=== PATIENT | female | born 2000 | race Caucasian/White ===

== ENCOUNTER → 2021-10-01 | Outpatient (CLI) | payer BC ==
--- NOTE | 2021-10-01 21:01 | US ---
EXAMINATION TYPE: Transabdominal DATE OF EXAM: 10/01/2021 8:49 AM COMPARISON: NONE CLINICAL HISTORY: Z36.87 UNCERTAIN LMP. Confirm dates EXAM PERFORMED: Transabdominal (TA) EXAM MEASUREMENTS: GESTATIONAL AGE / DATING Physician Established: (8 weeks/0 days) EDC: 05/13/2022 Dates by LMP: (8 weeks/0 days) EDC: 05/13/2022 Dates by First Scan: No previous this is first scan Dates by Current Scan for: ( 8 weeks/1 days) EDC: 05/12/2022 MATERNAL ANATOMY Uterus: 9.0 x 5.9 x 6.8cm Right Ovary: 2.8 x 1.8 x 1.3cm Left Ovary: 2.3 x 1.3 x 3.1cm Post CDS / Adnexa: wnl Presence of free fluid: no Presence of corpus luteal cyst: not seen Presence of subchorionic bleed: no GESTATION / SURVEY CRL: 1.7cm (8 weeks/1 days) Yolk Sac (normal less than 6mm): 4.1mm Heart Rate: 163 bpm Rhythm: Normal IUP: Viable IUP Date of LMP: 08/06/2021 Beta HcG (if available): Not available at time of exam IMPRESSION: 1. Single intrauterine gestation estimated at 8 weeks 1 days gestation based on the crown-rump length . Cardiac activity measures 163 bpm was observed during the study.
== END | disposition home or self-care (01) ==
LOC: RADUSWWP 08:18
PROVIDERS: ATTEND Obstetrics & Gynecology
DX: Z36.87 Encounter for antenatal screening for uncertain dates (principal); Z3A.08 8 weeks gestation of pregnancy
CPT/HCPCS: 76801

== ENCOUNTER 2022-03-06 17:41 | Outpatient (CLI) | payer BC ==
[2022-03-06 18:27] LABS: Appearance,Urine Cloudy (Clear); Bacteria,Urine Few /hpf; Bilirubin,Urine Negative (Negative); Blood,Urine Negative (Negative); Budding Yeast,Urine Moderate /hpf; Color,Urine Yellow; Glucose,Urine (UA) Negative (Negative); Ketones,Urine Negative (Negative); Leukocyte Esterase,Urine Negative (Negative); Mucus,Urine Rare /hpf; Nitrite,Urine Negative (Negative); PH, Urine 6.5 (5.0-8.0); Protein,Urine Trace (Negative); RBC,Urine 1 /hpf (0-5); Specific Gravity,Urine 1.018 (1.001-1.035); Squamous Epithelial Cell,Urine 2 /hpf (0-4); Urobilinogen,Urine <2.0 mg/dL (<2.0); WBC,Urine 9 /hpf (0-5)
[2022-03-06] MEDS: LACTATED RINGERS 1,000 ML IV SCH ×3 (18:36→21:15)
[2022-03-06 21:14] VITALS: BP 134/79; PULSE 98; RESP 16; TEMP 97.4
--- NOTE | 2022-03-17 09:44 | P.MSEPDOC ---
Presenting Problems - Arrival Data Date of Arrival on Unit: 03/06/22 Time of Arrival on Unit: 17:41 Mode of Transport: Ambulatory - Complaint OB-Reason for Admission/Chief Complaint: Pain Comment: back pain and vomitting (yesterday) Medical History - Information : 1 Para: 0 Term: 0 : 0 Abortions: Spontaneous or Elective: 0 Number of Living Children: 0 - Gestational Age Gestational Age by GIOVANY (wks/days): 30 Weeks and 2 Days Review of Systems - Review of Systems Constitutional: No problems Breast: No problems ENT: No problems Cardiovascular: No problems Respiratory: No problems Gastrointestinal: No problems Genitourinary: No problems Musculoskeletal: No problems Neurological: No problems Skin: No problems Vital Signs - Temperature Temperature: 97.4 F Temperature Source: Temporal Artery Scan - Pulse Pulse Oximetery Pulse Rate: 98 Pulse Assessment Method: Pulse Oximetry - Respirations Respiratory Rate: 16 O2 Sat by Pulse Oximetry: 98 - Blood Pressure Right Arm Blood Pressure: 134/79 Blood Pressure Mean: 97 Blood Pressure Source: Automatic Cuff Medical Screen Scoring - Cervical Exam Dilation (cm): 0 Effacement (%): 0 Station: -3 Membranes: Intact - Assessment - Baby A Baseline FHR: 125 Heart Rate - NICHD Category: Category I (Normal) NST: Reactive Physician Notification - Physician Notified Physician Notified Date: 03/06/22 Physician Notified Time: 18:20 Physician: Amna Armendariz New Order Received: Yes - Notification Comment Comment: Dr. Armendariz called for update on patient, updated her on patients back pain,. vital signs and her variable contractions. orders given to start IV bolus, and check UA. 1915 - spoke to Dr. Armendariz regarding patients vital signs urinalysis, cervical exam and. patients variable contractions. Orders given to start another bolus of fluids send urine. for culture. Patient can be discharged home when heart rate is 90-105 with pelvic rest. Maternal Triage Index - Maternal Triage Index Presenting for scheduled procedure w/no complaint: No - Stat/Priority 1 Stat Priority 1: No - Urgent/Priority 2 Urgent Priority 2: No - Prompt/Priority 3 Prompt Priority 3: No - Non-Urgent/Priority 4 Non-Urgent Priority 4: Yes Criteria Met for Priority 4: 30 2/7 weeks, back pain and vomitting (yesterday) Disposition - Disposition OB Disposition: Physician follow up in office, Discharge to home Discharge Date: 03/06/22 Discharge Time: 19:55 I agree with the RN Medical Screening Exam: Yes Case reviewed; plan agreed upon as documented in EMR&OBIX.: Yes Diagnosis: LATE VOMITING OF
== END 2022-03-06 19:55 | disposition home or self-care (01) ==
LOC: FBPOP 17:41
PROVIDERS: ATTEND Obstetrics & Gynecology
DX: O21.2 Late vomiting of pregnancy (principal); Z3A.30 30 weeks gestation of pregnancy
CPT/HCPCS: 59025; 81001; 87086; 96360; 99213; 99214

== ENCOUNTER 2022-05-03 18:04 | Outpatient (CLI) | payer BC ==
[2022-05-03 18:50] VITALS: BP 129/80; PULSE 115; RESP 16; TEMP 97.3
--- NOTE | 2022-06-13 10:01 | P.MSEPDOC ---
Presenting Problems - Arrival Data Date of Arrival on Unit: 05/03/22 Time of Arrival on Unit: 18:00 Mode of Transport: Ambulatory - Complaint OB-Reason for Admission/Chief Complaint: Decreased Movement Comment: no perceptible movement for 2 days per pt Medical History - Information : 1 Para: 0 Number of Living Children: 0 - Gestational Age Gestational Age by GIOVANY (wks/days): 38 Weeks and 4 Days Review of Systems - Review of Systems Constitutional: No problems Breast: No problems ENT: No problems Cardiovascular: No problems Respiratory: No problems Gastrointestinal: No problems Genitourinary: No problems Musculoskeletal: No problems Neurological: No problems Skin: No problems Vital Signs - Temperature Temperature: 97.3 F Temperature Source: Temporal Artery Scan - Pulse Right Sitting Brachial Pulse Rate: 115 Pulse Assessment Method: Automatic Cuff - Respirations Respiratory Rate: 16 Oxygen Delivery Method: Room Air O2 Sat by Pulse Oximetry: 98 - Blood Pressure Right Arm Sitting Blood Pressure: 129/80 Blood Pressure Mean: 96 Blood Pressure Source: Automatic Cuff Medical Screen Scoring - Cervical Exam Dilation (cm): 0 Effacement (%): 0 Station: 0 - Uterine Contractions Frequency From (mins): 0 Frequency To (mins): 0 Duration From (seconds): 0 Duration To (seconds): 0 Intensity: Absent - Assessment - Baby A Baseline FHR: 140 Heart Rate - NICHD Category: Category I (Normal) NST: Reactive Physician Notification - Physician Notified Physician Notified Date: 05/03/22 Physician Notified Time: 18:30 Physician: Lydia Saavedra New Order Received: Yes - Notification Comment Comment: dc Maternal Triage Index - Maternal Triage Index Presenting for scheduled procedure w/no complaint: No - Stat/Priority 1 Stat Priority 1: No - Urgent/Priority 2 Urgent Priority 2: Yes Provider Notified: Lydia Saavedra Provider Notified Time: 18:30 Criteria Met for Priority 2: decreased movement Disposition - Disposition OB Disposition: Discharge to home Discharge Date: 05/03/22 Discharge Time: 18:40 I agree with the RN Medical Screening Exam: Yes Case reviewed; plan agreed upon as documented in EMR&OBIX.: Yes Diagnosis: decreased movement
== END 2022-05-03 18:40 | disposition home or self-care (01) ==
LOC: FBPOP 18:04
PROVIDERS: ATTEND Obstetrics & Gynecology
DX: O36.8131 Decreased fetal movements, third trimester, fetus 1 (principal); Z3A.38 38 weeks gestation of pregnancy
CPT/HCPCS: 59025; 99213

== ENCOUNTER 2022-05-07 06:15 | Inpatient (IN) | payer BC ==
[2022-05-07] MEDS ORDERED: CITRIC ACID-SODIUM CITRATE 15 ML CUP PO ONE (10:35)
[2022-05-07 11:05] LABS: Basophils % (A) 0 %; Eosinophils # (A) 0.1 k/uL (0-0.7); Eosinophils % (A) 1 %; HCT 38.5 % (34.0-46.0); HGB 13.4 gm/dL (11.4-16.0); Lymphocytes # (A) 1.6 k/uL (1.0-4.8); Lymphocytes % (A) 19 %; MCH 31.5 pg (25.0-35.0); MCHC 34.8 g/dL (31.0-37.0); MCV 90.4 fL (80.0-100.0); Mean Platelet Volume 8.9; Monocytes # (A) 0.3 k/uL (0-1.0); Monocytes % (A) 4 %; Neutrophils # (A) 5.9 k/uL (1.3-7.7); Neutrophils % (A) 74 %; Platelet Count 303 k/uL (150-450); RBC 4.26 m/uL (3.80-5.40); RDW 12.6 % (11.5-15.5)
[2022-05-07] MEDS: LACTATED RINGERS 1,000 ML IV SCH ×3 (11:23→16:18)
[2022-05-07] MEDS ORDERED: fentaNYL (PF) 50 MCG/ML 2 ML AMP ONE (11:39)
[2022-05-07] MEDS ORDERED: MORPHINE SULFATE (PF) 0.3 MG/0.3 ML SYR ONE (11:39)
[2022-05-07] MEDS ORDERED: KETOROLAC 15 MG/ML 1 ML VIAL ONE (11:39)
[2022-05-07] MEDS ORDERED: DEXAMETHASONE SOD PHOSPHATE 4 MG/ML 1 ML VIAL ONE (11:39)
[2022-05-07] MEDS ORDERED: ONDANSETRON 4 MG/2 ML VIAL ONE (11:39)
[2022-05-07] MEDS ORDERED: OXYTOCIN 30 UNITS/500 ML NS BAG IV ONE (11:39)
--- NOTE | 2022-05-07 11:49 | P.HPOB ---
History of Present Illness H&P Date: 05/07/22 Chief Complaint: macrosomia, here for primary This is a 22-year-old female 1 para 0 EDC 05/13/2022 at 39+ weeks gestation. Patient has been followed in the office carefully, recent ultrasound revealed estimated weight greater than 99th percentile in all parameters, with before meals greater than 99th percentile as well. Patient has been coun seled regarding the risk of section versus vaginal delivery and potential shoulder dystocia. She is declining the option for trial of labor and choosing primary low transverse section. Past medical history significant for childhood asthma. Past surgical history is negative. Current medications vitamins daily. ALLERGIES none known. Family history significant for diabetes. Social history patient has never been a smoker, she is , her John is in attendance. She is employed at an [employer]. history significant for blood type O positive, rubella status immune. VDRL testing, urine culture, hepatitis B surface antigen, HIV testing, urine culture, gonorrhea and chlamydia cultures, group B strep culture all negative. One-hour Glucola 120. On exam patient is 220 pounds, 5 foot 4 inches. Vital signs are stable and she is afebrile. The general physical exam is within normal limits. Chest is clear in all taylor. Extremities reveal no edema. heart rate is consistent with reactive NST. Cervix is closed, posterior, long, thick. Fundal height 42 cm. Impression: 39+ week intrauterine , macrosomia with all parameters greater than 99th percentile. Risk of shoulder dystocia discussed in detail, patient requesting primary low transverse section. Plan: Antibiotics are given. Spinal with Duramorph will be given. We will proceed with primary low transverse section. All questions risks and benefits reviewed. Review of Systems Constitutional: Reports as per HPI Past Medical History Past Medical History: Asthma History of Any Multi-Drug Resistant Organisms: None Reported Smoking Status: Never smoker Past Drug Use History: None Reported Medications and Allergies Home Medications Medication Instructions Recorded Confirmed Type No Known Home Medications 05/03/22 05/03/22 History Allergies Allergy/AdvReac Type Severity Reaction Status Date / Time No Known Allergies Allergy Verified 05/03/22 18:06 Exam Vital Signs Temp Pulse Resp BP Pulse Ox 05/07/22 10:17 96.8 F L 108 H 16 138/83 98 Intake and Output 05/06/22 05/07/22 05/07/22 22:59 06:59 14:59 Other: Weight 99.79 kg See dictation under HPI please Results Result Diagrams: 05/07/22 10:30 Assessment and Plan Assessment: 39+ week intrauterine , macrosomia, risk of shoulder dystocia discussed, patient requesting primary low transverse section. Plan: We will proceed with primary low transverse section at this time. All risks benefits and alternatives discussed. Antibiotics given. Anesthesia present. Time with Patient: Less than 30
[2022-05-07] MEDS ORDERED: ONDANSETRON 4 MG/2 ML VIAL IVP PRN ×2 (12:42→12:49)
[2022-05-07] MEDS ORDERED: MORPHINE SULFATE 2 MG/ML SYRINGE IVP PRN (12:42)
[2022-05-07] MEDS ORDERED: NALOXONE 0.4 MG/ML 1 ML VIAL IV PRN ×2 (12:42→12:49)
[2022-05-07] MEDS ORDERED: diphenhydrAMINE 50 MG/ML 1 ML VIAL IVP PRN ×3 (12:42→12:49)
[2022-05-07] MEDS ORDERED: OXYTOCIN 30 UNITS/500 ML NS 30 UNIT in SALINE 1 500ML.BAG IV SCH (12:45)
[2022-05-07] MEDS ORDERED: SIMETHICONE 80 MG CHEWABLE PO PRN (12:49)
[2022-05-07] MEDS ORDERED: diphenhydrAMINE 50 MG CAP PO PRN (12:49)
[2022-05-07] MEDS ORDERED: diphenhydrAMINE 25 MG CAP PO PRN (12:49)
[2022-05-07] MEDS ORDERED: METOCLOPRAMIDE 5 MG/ML 2 ML VIAL IVP PRN (12:49)
[2022-05-07] MEDS ORDERED: ZOLPIDEM 5 MG TAB PO PRN (12:49)
--- NOTE | 2022-05-07 12:49 | P.OP ---
Date of Procedure: 05/07/22 Preoperative Diagnosis: macrosomia at 39+ weeks Postoperative Diagnosis: Same, liveborn male infant, 4010 g, 8 lbs. 13 oz. Normal-appearing tubes and ovaries bilaterally Procedure(s) Performed: Primary low transverse section Anesthesia: spinal Surgeon: Amna Armendariz Real Estate Sales Agent #1: Candi Ceron Estimated Blood Loss (ml): 558 IV fluids (ml): 1,500 Urine output (ml): 200 Pathology: none sent Condition: stable Disposition: PACU Description of Procedure: This is a 22-year-old female 1 para 0 EDC 05/13/2022 at 39 and one sevenths weeks' gestation. Patient presents with sonographic evidence of macrosomia, all measurements greater than 99th percentile. She was counseled thoroughly regarding vaginal with possible shoulder dystocia versus primary low transverse section, and chose the section. Please see my dictated history and physical for details. Group B strep cultures negative, blood type O+, rubella status immune. Patient is brought back to the operative suite where a spinal with Duramorph is administered. She's placed in the dorsal supine position with left lateral uterine displacement. Antibiotics given. The abdomen is prepped and draped in usual sterile fashion. The appropriate timeout is performed to assure proper patient and procedural identification. Analgesia is checked and noted to be adequate. A low transverse skin incision is made in this is carried down through the subcutaneous tissue which is approximately 7-8 cm deep. The fascia is isolated, scored, extended bilaterally with curved Nava scissors. Peritoneum is next identified and incised, there is no bowel or bladder involvement. Bladder is well from the operative field. Bladder blade is placed over the dome of the bladder to protect it from injury. A low transverse uterine incision is made. This is extended bluntly. Artificial amniorrhexis reveals clear fluid. head is delivered in the occiput anterior position. There is no nuchal c ord noted. The shoulders are easily delivered and the patient is officially delivered of a liveborn male at 1208 hrs. Oropharynx, nasopharynx, and external nares are all bulb suctioned. Cord blood is sent to the lab for evaluation. scores of 8 and 9 at one and 5 minutes respectively are given. Placenta is delivered manually, it is inspected, noted to be intact with trivascular cord at 1209. Uterus is then externalized and massaged. It is swept clean with a sterile sponge to avoid any retained products of conception. Uterus is closed in a two-step fashion, first layer running locking, second layer imbricated. Hemostasis is excellent. Bilateral tubes and ovaries appear normal. Pitocin has been given. Uterus is gently placed back into the abdominal cavity after suctioning posterior to the uterus with a suction on guard. Bilateral gutters are inspected and cleaned. The peritoneum is allowed to close by secondary intention. Fascia is closed in a running stitch of 0 Vicryl with over ligation in the midline. Subcutaneous tissue is irrigated, clean and dry. It is reapproximated with 3-0 Vicryl in a running fashion. 4-0 undyed Monocryl is used for final skin closure. All sponge needle and enhancement counts are correct. The wound is dressed with Steri-Strips and Mastisol. Uterus is massaged for a small amount of bleeding. [place] is noted to be draining clear urine. Patient is brought back to the recovery room in very good condition with stable vital signs including blood pressure 111/97, pulse 91, 98% O2 saturation.
[2022-05-07] MEDS: ACETAMINOPHEN TAB 500 MG TAB PO SCH (16:33)
[2022-05-07] MEDS: IBUPROFEN 600 MG TAB PO SCH (19:58)
[2022-05-07] MEDS: SENNOSIDES-DOCUSATE SODIUM 1 EACH TAB PO SCH (19:58)
[2022-05-08] MEDS: LACTATED RINGERS 1,000 ML IV SCH ×2 (00:36→03:52)
[2022-05-08] MEDS: ACETAMINOPHEN TAB 500 MG TAB PO SCH ×5 (00:36→21:02)
[2022-05-08] MEDS: IBUPROFEN 600 MG TAB PO SCH ×5 (00:39→23:13)
[2022-05-08] MEDS: SENNOSIDES-DOCUSATE SODIUM 1 EACH TAB PO SCH ×2 (07:45→21:02)
[2022-05-08 07:59] LABS: Basophils % (A) 0 %; Eosinophils % (A) 0 %; Lymphocytes # (A) 2.2 k/uL (1.0-4.8); Lymphocytes % (A) 24 %; MCH 31.4 pg (25.0-35.0); MCV 92.3 fL (80.0-100.0); Mean Platelet Volume 9.5; Monocytes # (A) 0.4 k/uL (0-1.0); Monocytes % (A) 5 %; Neutrophils # (A) 6.2 k/uL (1.3-7.7); Neutrophils % (A) 68 %; Platelet Count 258 k/uL (150-450); RBC 3.25 m/uL (3.80-5.40); RDW 13.2 % (11.5-15.5); WBC 9.1 k/uL (3.8-10.6)
[2022-05-08 08:14] LABS: HGB 10.2 gm/dL (11.4-16.0)
--- NOTE | 2022-05-08 08:26 | P.PN ---
Subjective Progress Note Date: 05/08/22 Principal diagnosis: Postoperative day #1 Slept well. Minimal to moderate lochia rubra. No complaints. Requesting circumcision. Objective - Vital Signs Vital signs: Vital Signs Temp 98.0 F 05/08/22 07:47 Pulse 80 05/08/22 07:47 Resp 18 05/08/22 07:47 BP 108/71 05/08/22 07:47 Pulse Ox 100 05/08/22 07:47 FiO2 Intake & Output 05/07/22 05/08/22 05/08/22 18:59 06:59 18:59 Intake Total 1000 Output Total 1325 400 600 Balance -325 -400 -600 Weight 99.79 kg Intake: IV 1000 Output: Urine 450 400 600 Uretheral ([place]) 400 Estimated Blood Loss 558 Output, Quantitative 317 Blood Loss Other: Voiding Method Indwelling Catheter Toilet # Voids 1 - Constitutional General appearance: Present: average body habitus, cooperative - EENT Eyes: Present: PERRLA ENT: Present: hearing grossly normal - Respiratory Respiratory: bilateral: CTA - Cardiovascular Rhythm: regular - Gastrointestinal General gastrointestinal: Present: normal bowel sounds - Genitourinary Genitourinary Comment(s): Incision clean and dry, Steri-Strips attached. Fundus firm, midline, symmetric, 18 week size. - Integumentary Integumentary: Present: normal - Neurologic Neurologic: Present: CNII-XII intact - Musculoskeletal Musculoskeletal: Present: gait normal, strength equal bilaterally - Psychiatric Psychiatric: Present: A&O x's 3, appropriate affect, intact judgment & insight - Labs CBC & Chem 7: 05/08/22 06:20 Labs: Abnormal Lab Results - Last 24 Hours (Table) 05/08/22 Range/Units 06:20 RBC 3.25 L (3.80-5.40) m/uL Hgb 10.2 L D (11.4-16.0) gm/dL Hct 30.0 L (34.0-46.0) % Assessment and Plan Assessment: Doing well postoperative day #1 Plan: Advance diet and activity. May shower. Circumcision this morning. Likely discharge home tomorrow. Time with Patient: Less than 30
--- NOTE | 2022-05-08 12:00 | P.PN ---
Progress Note - Text Progress Note Date: 05/08/22 Ms. Bush is a 22 -year-old female had a history of under spinal analgesia with Astramorph 300 g for postop pain. Today patient is comfortable sitting in her bed. Today patient rated her pain level 2-3 out of 10 in severity. Denied any fever, drowsiness, confusion. Denied any weakness, tingling sensation in her lower extremities. Denied any bowel or bladder problems. Moving all extremities without any difficulty. Able to walk without any difficulties. Vitals: Hemodynamically stable Continue oral pain medication as per primary team.
[2022-05-09] MEDS: ACETAMINOPHEN TAB 500 MG TAB PO SCH ×2 (04:10→10:42)
[2022-05-09] MEDS: IBUPROFEN 600 MG TAB PO SCH (06:56)
[2022-05-09 08:16] VITALS: BP 109/70; PULSE 93; RESP 12; TEMP 98.6
[2022-05-09] MEDS: SENNOSIDES-DOCUSATE SODIUM 1 EACH TAB PO SCH (08:16)
--- NOTE | 2022-05-09 08:46 | P.DS ---
Providers Date of admission: 05/07/22 10:05 Expected date of discharge: 05/09/22 Attending physician: Amna Armendariz Primary care physician: Stated None - Discharge Diagnosis(es) (1) Term Current Visit: Yes Status: Acute (2) LGA (large for gestational age) fetus Current Visit: Yes Status: Acute (3) S/P section Current Visit: Yes Status: Acute Hospital Course: This is a 22-year-old with an estimated due date of 1214 presented to labor and delivery at 39 and one sevenths weeks for primary low transverse section. Patient had ultrasound evidence of macrosomia all measurements greater than the 99th percentile. Patient was counseled on vaginal delivery with possible shoulder dystocia versus primary . Patient elected primary . For full details on this patient please see the dictated history and physical. Patient underwent primary without difficulty. Patient delivered a viable male 8 lbs. 13 oz., for full details on the please see the dictated operative report. Patient's postoperative course has been uneventful. On this postoperative day #2 she is ambulating and voiding without difficulty, she is tolerating regular diet without nausea or vomiting. She states her pain is well-controlled with ibuprofen and Tylenol. She denies concerns. She is breast-feeding with some difficulty but is working with nursing. Her lochia is minimal. She would like discharge home later today. Patient Condition at Discharge: Good Plan - Discharge Summary Discharge Rx Participant: No New Discharge Prescriptions: No Action No Known Home Medications Discharge Medication List No Known Home Medications 05/03/22 [History] Follow up Appointment(s)/Referral(s): Gabriela Pickard DO [Doctor of Osteopathic Medicine] - 2 Weeks Patient Instructions/Handouts: (DC), (GEN) Activity/Diet/Wound Care/Special Instructions: Patient is to call for routine postoperative appointment in 2 weeks. [id number] ibuprofen 600 mg every 6 hours as needed for pain. No tub baths or intercourse until 6 weeks post . If patient should have any concerns prior to her routine postoperative appointment she is urged to call the office. Discharge Disposition: HOME SELF-CARE
== END 2022-05-09 14:06 | disposition home or self-care (01) | DRG 788 ==
LOC: 4FBP 10:05
PROVIDERS: ADMIT Obstetrics & Gynecology; ATTEND Obstetrics & Gynecology
PROC: 10D00Z1 Extraction of Products of Conception, Low, Open Approach (ICD-10-PCS; principal; 2022-05-07 12:00)
DX: O36.63X0 Maternal care for excessive fetal growth, third trimester, not applicable or unspecified (principal); O99.52 Diseases of the respiratory system complicating childbirth; J45.909 Unspecified asthma, uncomplicated; Z28.310 Unvaccinated for COVID-19; Z3A.39 39 weeks gestation of pregnancy; Z37.0 Single live birth
CPT/HCPCS: 85025; 86850; 86900; 86901

== ENCOUNTER 2024-06-22 08:33 | Inpatient (IN) | payer BC ==
[2024-06-22] MEDS ORDERED: TRANEXAMIC 1,000 MG/100ML-NACL 1,000 MG in EMPTY BAG 1 BAG IV PRN (08:55)
[2024-06-22] MEDS ORDERED: miSOPROStoL 200 MCG TAB PO PRN (08:55)
[2024-06-22] MEDS ORDERED: METHYLERGONOVINE 0.2 MG/ML 1 ML AMP IM PRN (08:55)
[2024-06-22] MEDS ORDERED: CARBOPROST TROMETHAMINE 250 MCG/ML 1 ML AMP IM PRN (08:55)
[2024-06-22] MEDS ORDERED: OXYTOCIN 10 UNIT/ML 1 ML VIAL IM PRN (08:55)
[2024-06-22] MEDS: LACTATED RINGERS 1,000 ML IV SCH ×2 (09:13→11:54)
[2024-06-22 09:20] LABS: Basophils % (A) 0 %; Eosinophils # (A) 0.2 k/uL (0-0.7); Eosinophils % (A) 2 %; HCT 39.4 % (34.0-46.0); HGB 13.4 gm/dL (11.4-16.0); Lymphocytes # (A) 2.4 k/uL (1.0-4.8); Lymphocytes % (A) 24 %; MCH 30.2 pg (25.0-35.0); MCV 88.7 fL (80.0-100.0); Mean Platelet Volume 8.5; Monocytes # (A) 0.4 k/uL (0-1.0); Monocytes % (A) 4 %; Neutrophils # (A) 6.8 k/uL (1.3-7.7); Neutrophils % (A) 68 %; Platelet Count 344 k/uL (150-450); RBC 4.44 m/uL (3.80-5.40); RDW 13.8 % (11.5-15.5)
[2024-06-22] MEDS: CITRIC ACID-SODIUM CITRATE 15 ML CUP PO ONE (09:43)
[2024-06-22] MEDS ORDERED: NALBUPHINE (ANES) 10 MG/ML - 1 ML AMP ONE (09:51)
[2024-06-22] MEDS ORDERED: MORPHINE SULFATE (PF) 0.3 MG/0.3 ML SYR ONE (09:51)
[2024-06-22] MEDS ORDERED: DEXAMETHASONE SOD PHOSPHATE 4 MG/ML 1 ML VIAL ONE (09:51)
[2024-06-22] MEDS ORDERED: OXYTOCIN 30 UNITS/500 ML NS BAG IV ONE (09:51)
[2024-06-22] MEDS ORDERED: PHENYLEPHRINE-0.9% NACL SYG 1,000 MCG/10 ML SYRINGE ONE (09:51)
[2024-06-22] MEDS ORDERED: ONDANSETRON 4 MG/2 ML VIAL ONE (09:51)
--- NOTE | 2024-06-22 10:58 | P.HPOB ---
History of Present Illness H&P Date: 06/22/24 Chief Complaint: BP at 39 weeks, polyhydramnios, history of x 1 24-year-old G2, P1 39 weeks of that presents to labor and delivery for scheduled repeat section. Patient has been receiving routine care which has been complicated by diagnosis of polyhydramnios, LGA estimated weight greater than 90th percentile. testing has been normal in nature. Patient does note good movement denies vaginal bleeding loss of fluid or contractions. On blood work this patient is up a type of O+, rubella immune, hepat itis B surface engine negative, HIV negative, RPR is nonreactive, hepatitis C is negative, group beta strep cultures positive. Review of Systems Constitutional: Denies chills, Denies fatigue, Denies fever Ears, nose, mouth and throat: Denies headache Cardiovascular: Reports leg edema Respiratory: Denies dyspnea Gastrointestinal: Denies constipation, Denies diarrhea, Denies nausea, Denies vomiting Genitourinary: Reports Past Medical History Past Medical History: Asthma History of Any Multi-Drug Resistant Organisms: None Reported Past Surgical History: No Surgical Hx Reported Past Anesthesia/Blood Transfusion Reactions: No Reported Reaction Past Psychological History: No Psychological Hx Reported Smoking Status: Never smoker Past Alcohol Use History: None Reported Past Drug Use History: None Reported - Past Family History Mother History Unknown: Yes Family Medical History: Diabetes Mellitus Medications and Allergies Home Medications Medication Instructions Recorded Confirmed Type Pnv 11/Iron Fum/Folic Acid/Om3 1 cap PO DAILY 06/22/24 06/22/24 History [Wesnate Dha Softgel] Allergies Allergy/AdvReac Type Severity Reaction Status Date / Time No Known Allergies Allergy Verified 06/22/24 08:53 Exam Osteopathic Statement: *. No significant issues noted on an osteopathic structural exam other than those noted in the History and Physical/Consult. Vital Signs Temp Pulse Resp BP Pulse Ox 06/22/24 08:52 97.1 F L 112 H 20 137/70 99 Intake and Output 06/21/24 06/22/24 06/22/24 22:59 06:59 14:59 Other: Weight 117.934 kg Targeted physical exam is performed this date in general is a well-nourished well-developed female in no acute distress, breathing is nonlabored, heart has a regular rate and rhythm, abdomen is gravid, heart tones noted to be category 1 and she is not annemarie cervical exam is deferred. Results Result Diagrams: 06/22/24 08:56 Assessment and Plan (1) Polyhydramnios Current Visit: Yes Status: Acute Code(s): O40.9XX0 - POLYHYDRAMNIOS, UNSP TRIMESTER, NOT APPLICABLE OR UNSP SNOMED Code(s): 54825815 (2) LGA (large for gestational age) fetus Current Visit: No Status: Acute Code(s): UGS8541 - SNOMED Code(s): 038650068 (3) Term Current Visit: No Status: Acute Code(s): Z34.90 - ENCNTR FOR SUPRVSN OF NORMAL , UNSP, UNSP TRIMESTER SNOMED Code(s): 06711731 Plan: 24-year-old G2, P1 at 39-0/7 weeks presents for repeat section. Patient was admitted anesthesia into see patient. Procedure is reviewed and questions are answered. Patient is taken back to the operating suite.
[2024-06-22] MEDS ORDERED: diphenhydrAMINE 25 MG CAP PO PRN (11:02)
[2024-06-22] MEDS ORDERED: NALOXONE 0.4 MG/ML 1 ML VIAL IV PRN (11:02)
[2024-06-22] MEDS ORDERED: diphenhydrAMINE 50 MG CAP PO PRN (11:02)
[2024-06-22] MEDS ORDERED: ZOLPIDEM 5 MG TAB PO PRN (11:02)
[2024-06-22] MEDS ORDERED: METOCLOPRAMIDE 5 MG/ML 2 ML VIAL IVP PRN (11:02)
[2024-06-22] MEDS ORDERED: ONDANSETRON 4 MG/2 ML VIAL IVP PRN (11:02)
[2024-06-22] MEDS ORDERED: diphenhydrAMINE 50 MG/ML 1 ML VIAL IVP PRN (11:02)
--- NOTE | 2024-06-22 11:02 | P.OP ---
Date of Procedure: 06/22/24 Preoperative Diagnosis: IUP at 39-0/7 weeks, suspected LGA, polyhydramnios, history of section x 1 desires repeat Postoperative Diagnosis: Same Procedure(s) Performed: Repeat section Anesthesia: spinal Surgeon: Gabriela Pickard Weather Anchor #1: Dilan Dela Cruz Estimated Blood Loss (ml): 466 IV fluids (ml): 900 Urine output (ml): 50 (Clear yellow) Pathology: none sent Condition: stable Disposition: observation Indications for Procedure: History of section x 1, desires repeat, polyhydramnios, suspected LGA Operative Findings: Viable female delivered at 1027, weight of 9 pounds 0 ounces, normal uterus tubes and ovaries were appreciated. Description of Procedure: The patient was prepped and draped in the usual fashion after spinal anesthesia was administered by anesthesia department. A Pfannenstiel incision was made and extended of the abdominal cavity without difficulty. Large rectus diastases was appreciated the bladder peritoneum was elevated and incised and reflected distally. A 2 cm incision was made in the transverse plane of the lower uterine segment to enter the uterus at which time copious clear fluid was noted. The incision was extended in both directions using the bandage scissors. The head was encountered within the field and delivered up and through the incision where the nose and mouth were thoroughly suctioned. Remainder of the was delivered onto the surgical field where the cord was doubly clamped, cut, and the was passed for resuscitative measures with weight 9 pounds 0 ounces. The placenta was delivered manually, intact, and was grossly normal with a grossly normal three-vessel cord. The uterus was exteriorized and the interior cavity of the uterus swept of any remaining placental and membranous fragments with a laparotomy sponge. The margins of the incision were grasped with Hunt clamps and the incision closed in 2 layers. First layer was a r unning locking layer of 0 chromic catgut from margin to margin followed by a second layer of imbricating 0 chromic catgut from margin to margin. Any small points of bleeding were then made hemostatic with the Bovie. Once hemostasis was achieved, the posterior cul-de-sac was suctioned with a guard and the uterine and ovarian findings are as noted above. The uterus was replaced within the abdominal cavity and the gutters swept of any remaining blood fluid or clot. The incision was again reexamined and hemostasis was noted to be excellent. Any small point of bleeding were made hemostatic with the Bovie. Once hemostasis was achieved the parietal peritoneum was loosely reapproximated. The layer of muscles were examined and made hemostatic with the Bovie. Attention was then turned to the fascia which was closed with 2 running stitches of 0 Vicryl proceeding from the lateral margins to the midpoint. The subcutaneous tissues were irrigated, made hemostatic with the Bovie, and reapproximated with a running stitch of 30 Vicryl. The skin was reapproximated with 4-0 Vicryl. Estimated blood loss for the case was approximately 466 mL. All sponge instrument and needle counts are correct. There were no complications. The patient tolerated the procedure well and proceeded to the recovery room in stable condition. Both mother and are resting comfortably in recovery.
[2024-06-22] MEDS: ACETAMINOPHEN IV (For NPO) 1,000 MG in EMPTY BAG 1 BAG IVPB ONE (12:03)
[2024-06-22] MEDS: diphenhydrAMINE 50 MG/ML 1 ML VIAL IVP PRN (16:03)
[2024-06-22] MEDS: IBUPROFEN 800 MG TAB PO SCH (17:44)
[2024-06-22] MEDS: ACETAMINOPHEN TAB 500 MG TAB PO SCH (20:17)
[2024-06-22] MEDS: SENNOSIDES-DOCUSATE SODIUM 1 EACH TAB PO SCH (20:17)
[2024-06-23 06:41] LABS: Basophils % (A) 0 %; Eosinophils # (A) 0.1 k/uL (0-0.7); Eosinophils % (A) 1 %; HCT 32.5 % (34.0-46.0); HGB 10.6 gm/dL (11.4-16.0); Lymphocytes # (A) 2.5 k/uL (1.0-4.8); Lymphocytes % (A) 24 %; MCH 29.5 pg (25.0-35.0); MCHC 32.7 g/dL (31.0-37.0); MCV 90.2 fL (80.0-100.0); Monocytes # (A) 0.6 k/uL (0-1.0); Monocytes % (A) 6 %; Neutrophils # (A) 7.2 k/uL (1.3-7.7); Neutrophils % (A) 67 %; Platelet Count 270 k/uL (150-450); RDW 13.5 % (11.5-15.5); WBC 10.6 k/uL (3.8-10.6)
--- NOTE | 2024-06-23 08:56 | P.PN ---
Progress Note - Text Progress Note Date: 06/23/24 (305) Anesthesia Postop day 1 Subjective: Status Post section with Duramorph. Patient seen and examined. Doing well without complaint. VAS 0. No nausea or vomiting. Mild pruritus tolerable.. Denies fever. Gross lower extremity strength intact. Without apparent anesthetic complications. Objective: Vital signs reviewed Heart: Regular Rate Lungs: Good chest excursion Abdomen: Appears nondistended Assessment: Status post section with Duramorph postop day 1 Plan: 1. Continue current care with your medical management. Anticipated end to the duration of the Duramorph around surgery time today. You may see increased pain needs around this time. 2. This note was dictated using [employer] software. Please be advised there is a potential for misspellings or errors in manager of photography.
[2024-06-23] MEDS: PRENATAL VIT-IRON-FOLIC ACID 1 EACH TABLET PO SCH (09:10)
--- NOTE | 2024-06-23 10:54 | P.PNOBGPC ---
Subjective - Subjective Principal diagnosis: Postop day 1, repeat section Interval history: Patient is doing well postoperatively. She is ambulating and voiding without difficulty. She states her pain is well-controlled. She denies concerns. Patient reports: Reports appetite normal, Reports voiding normally, Reports pain well controlled, Reports ambulating normally [place]: doing well (in SCN on HF oxygen) Objective - Vital Signs Latest vital signs: Vital Signs Temp Pulse Resp BP Pulse Ox 06/23/24 08:51 96.1 F L 100 17 123/62 98 06/23/24 00:00 98.0 F 109 H 16 128/78 98 06/22/24 20:00 98.1 F 104 H 16 131/72 99 06/22/24 15:01 97.8 F 112 H 18 120/75 98 06/22/24 13:01 96.4 F L 108 H 18 135/79 100 06/22/24 12:46 96.4 F L 109 H 16 132/75 100 06/22/24 12:31 96.4 F L 107 H 16 122/66 99 06/22/24 12:16 96.4 F L 107 H 16 117/67 99 06/22/24 12:01 96.0 F L 98 16 120/63 94 L 06/22/24 11:46 96.1 F L 105 H 16 125/67 100 06/22/24 11:31 96.1 F L 107 H 16 125/69 100 06/22/24 11:16 96.0 F L 105 H 16 120/65 95 06/22/24 11:01 96.8 F L 105 H 16 119/62 96 Intake and Output 06/22/24 06/23/24 06/23/24 22:59 06:59 14:59 Output Total 425 250 Balance -425 -250 Output: Urine 425 250 Uretheral ([place]) 425 Other: Voiding Method Indwelling Catheter # Voids 1 - Labs Labs: Abnormal Lab Results - Last 24 Hours (Table) 06/23/24 Range/Units 06:22 RBC 3.60 L (3.80-5.40) m/uL Hgb 10.6 L (11.4-16.0) gm/dL Hct 32.5 L (34.0-46.0) % Assessment and Plan (1) Polyhydramnios Current Visit: Yes Status: Acute Code(s): O40.9XX0 - POLYHYDRAMNIOS, UNSP TRIMESTER, NOT APPLICABLE OR UNSP SNOMED Code(s): 87439356 (2) LGA (large for gestational age) fetus Current Visit: No Status: Acute Code(s): SKH4413 - SNOMED Code(s): 798692172 (3) Term Current Visit: No Status: Acute Code(s): Z34.90 - ENCNTR FOR SUPRVSN OF NORMAL , UNSP, UNSP TRIMESTER SNOMED Code(s): 96256553 Plan: Patient is doing well postoperatively. Plan to continue routine postoperative care
[2024-06-23] MEDS: SIMETHICONE 80 MG CHEWABLE PO PRN (17:59)
--- NOTE | 2024-06-24 12:40 | P.PNOBGPC ---
Subjective - Subjective Patient reports: Reports appetite normal, Reports voiding normally, Reports pain well controlled, Reports ambulating normally : doing well, in NICU (Weaning off of oxygen supplementation.) Objective - Vital Signs Latest vital signs: Vital Signs Temp Pulse Resp BP Pulse Ox 06/24/24 08:00 97.9 F 103 H 14 100/64 06/24/24 00:00 97.7 F 101 H 16 113/58 06/23/24 15:58 98.2 F 61 16 95/57 99 Intake and Output 06/23/24 06/24/24 06/24/24 22:59 06:59 14:59 Other: # Voids 1 1 1 - Exam Extremities: Present: normal Abdomen: Present: normal appearance, soft. Absent: distention, tenderness Incision: Present: normal, dry, intact Uterus: Present: normal, firm Assessment and Plan (1) S/P section Current Visit: No Status: Acute Code(s): Z98.891 - HISTORY OF UTERINE SCAR FROM PREVIOUS SURGERY SNOMED Code(s): 892349224 Plan: As the remains in the nursery, continue routine and postoperative care. Should the baby be deemed stable for discharge, the patient will be discharged as well. She will otherwise likely remain until postoperative day #4. I have encouraged her to continue to ambulate in the hallways routinely.
--- NOTE | 2024-06-25 10:53 | P.DS ---
Providers Date of admission: 06/22/24 08:33 Expected date of discharge: 06/25/24 Attending physician: Gabriela Pickard Primary care physician: John Dugan - Discharge Diagnosis(es) (1) S/P section Current Visit: No Status: Acute Hospital Course: Patient is a 24-year-old 2 para 1-0-0-1 admitted at 39 weeks for scheduled repeat section. She has had her complicated by diagnosis of polyhydramnios as well as an found at greater than the 90th percentile. testing has been reassuring throughout. On labor delivery, all signs are reassuring with a category 1 heart rate tracing and group B strep status is negative. She was taken to the operating room where she underwent a repeat low-transverse section in an uncomplicated fashion and was delivered of a viable 9 pound 0 ounce baby girl with Apgars of 8 at 1 minute and 9 at 5 minutes. The patient's and postoperative course was unremarkable with vital signs remaining stable and her temperature was afebrile throughout. The was placed in the special care nursery for oxygen supplementation as well as prophylactic antibiotics. As a result, the patient was deemed stable for discharge on postoperative day but #3 and was discharged home to follow-up in the office in 2 weeks for an incision check in 6 weeks routinely. Discharge instructions included calling for any significantly increased bleeding or foul-smelling lochia, significantly increased fever abdominal pain, perineal complaints, breast complaints, incisional complaints, or anything else that concerned her. She was additionally instructed to have nothing in the vagina for at least 6 weeks time to include intercourse. She was instructed to do no heavy lifting over the same period of time. She was lastly instructed to do no driving until off of all pain medications or 2 weeks time, whichever came first. She understood her instructions and agrees to follow-up as noted above. Discharge medications included continued vitamins as she has opted to breast-feed. She was otherwise to use [id number] analgesic pain medications as needed. She was provided a prescription for oxycodone 5 mg, 1-2 p.o. every 6 hours as needed pain, #20 dispensed with no refills. Maternal blood type is O+ and rubella status is immune. Discharge hemoglobin and hematocrit were 10.6 and 32.5 respectively. Procedures: #1. Repeat low-transverse section Patient Condition at Discharge: Stable Plan - Discharge Summary New Discharge Prescriptions: No Action Pnv 11/Iron Fum/Folic Acid/Om3 [[place] Dha Softgel] 1 cap PO DAILY Discharge Medication List Pnv 11/Iron Fum/Folic Acid/Om3 [Wesnate Dha Softgel] 1 cap PO DAILY 06/22/24 [History] Follow up Appointment(s)/Referral(s): Gabriela Pickard DO [Doctor of Osteopathic Medicine] - 07/05/24 2:45 pm (07/05/2024 2:45pm 08/02/2024 2:45pm) Discharge Disposition: HOME SELF-CARE
[2024-06-26 07:51] VITALS: BP 120/78; PULSE 86; RESP 18; TEMP 98.3
== END 2024-06-26 13:50 | disposition home or self-care (01) | DRG 788 ==
LOC: 4FBP 08:33
PROVIDERS: ADMIT Obstetrics & Gynecology Obstetrics; ATTEND Obstetrics & Gynecology Obstetrics
PROC: 10D00Z1 Extraction of Products of Conception, Low, Open Approach (ICD-10-PCS; principal; 2024-06-22 10:00)
DX: O34.211 Maternal care for low transverse scar from previous cesarean delivery (principal); O40.3XX0 Polyhydramnios, third trimester, not applicable or unspecified; J45.909 Unspecified asthma, uncomplicated; O36.63X0 Maternal care for excessive fetal growth, third trimester, not applicable or unspecified; O99.52 Diseases of the respiratory system complicating childbirth; O99.824 Streptococcus B carrier state complicating childbirth; Z37.0 Single live birth; Z3A.39 39 weeks gestation of pregnancy
CPT/HCPCS: 85025; 86850; 86900; 86901